=== PATIENT | male | born 1995 | race Caucasian/White ===

== ENCOUNTER → 2024-06-18 12:22 | Outpatient (CLI) | payer OTHER, SELFPAY ==
[2024-06-18 14:17] LABS: Urine N gonorrhoeae NOT DETECTED
[2024-06-18 14:19] LABS: Urine Chlamydia NOT DETECTED
== END ==
PROVIDERS: PCP Physician Assistant; Visit Provider Nurse Practitioner Family
DX: Z11.3 Encounter for screening for infections with a predominantly sexual mode of transmission (principal)
CPT/HCPCS: 87491; 87591

== ENCOUNTER → 2024-06-18 12:31 | Outpatient (CLI) | payer OTHER, SELFPAY ==
[2024-06-18 23:36] LABS: HSV 1 IGG AB Non Reactive (Non Reactive); HSV 2 IGG AB Non Reactive (Non Reactive)
[2024-06-19 04:38] LABS: RPR Screen Non Reactive (Non Reactive)
[2024-06-19 16:34] LABS: Hepatitis B Surface Antigen NEGATIVE s/c (NEGATIVE)
[2024-06-19 16:43] LABS: HIV 1 & 2 Ab/Ag 4th Gen Combo NEGATIVE (NEGATIVE); Hep C Virus Ab w/Reflex Quant NEGATIVE s/c (NEGATIVE)
== END ==
PROVIDERS: PCP Physician Assistant; Referring Provider Nurse Practitioner Family; Visit Provider Nurse Practitioner Family
DX: Z11.3 Encounter for screening for infections with a predominantly sexual mode of transmission (principal)
CPT/HCPCS: 36415; 86592; 86695; 86696; 86803; 87340; 87389; 87491; 87591